=== PATIENT | male | born 1960 | race Caucasian/White ===

== ENCOUNTER 2019-03-30 07:58 | Outpatient (RCR) | payer BC, OTHER, SELFPAY ==
[2019-01-21 08:34] LABS: Prothrombin Time 22.5 Seconds (11.1-14.7)
[2019-03-30 09:26] LABS: INR 1.7; Prothrombin Time 19.2 Seconds (11.1-14.7)
== END 2019-04-21 23:59 | disposition home or self-care (01) ==
LOC: ANHLAB 07:58
PROVIDERS: PCP Nurse Practitioner Family
DX: Z51.81 Encounter for therapeutic drug level monitoring (principal); I48.0 Paroxysmal atrial fibrillation; Z79.01 Long term (current) use of anticoagulants
CPT/HCPCS: 36415; 85610

== ENCOUNTER 2019-07-15 07:02 | Outpatient (RCR) | payer BC, OTHER, SELFPAY ==
[2019-05-15 08:47] LABS: INR 3.9; Prothrombin Time 37.4 Seconds (11.1-14.7)
[2019-07-15 08:00] LABS: INR 2.4; Prothrombin Time 25.5 Seconds (11.1-14.7)
== END 2019-08-13 23:59 | disposition home or self-care (01) ==
LOC: ANHLAB 07:02
PROVIDERS: PCP Nurse Practitioner Family; Visit Provider Specialist
DX: Z51.81 Encounter for therapeutic drug level monitoring (principal); I48.20 Chronic atrial fibrillation, unspecified; Z79.01 Long term (current) use of anticoagulants
CPT/HCPCS: 36415; 85610

== ENCOUNTER 2019-10-16 07:54 | Outpatient (RCR) | payer BC, OTHER, SELFPAY ==
[2019-08-24 08:23] LABS: INR 2.6; Prothrombin Time 27.5 Seconds (11.1-14.7)
[2019-10-16 08:54] LABS: INR 2.1; Prothrombin Time 22.8 Seconds (11.1-14.7)
== END 2019-11-22 23:59 | disposition home or self-care (01) ==
LOC: ANHLAB 07:54
PROVIDERS: PCP Nurse Practitioner Family; Visit Provider Specialist
DX: Z51.81 Encounter for therapeutic drug level monitoring (principal); I48.20 Chronic atrial fibrillation, unspecified; Z79.01 Long term (current) use of anticoagulants
CPT/HCPCS: 36415; 85610

== ENCOUNTER 2020-01-16 07:54 | Outpatient (RCR) | payer BC, OTHER, SELFPAY ==
[2019-12-15 08:51] LABS: INR 2.6; Prothrombin Time 27.1 Seconds (11.1-14.7)
[2020-01-16 08:28] LABS: Partial Thromboplastin Time 38.9 SECONDS (22.3-36.8)
[2020-01-16 15:22] LABS: INR 2.9; Prothrombin Time 30.6 Seconds (11.1-14.7)
== END 2020-03-14 23:59 | disposition home or self-care (01) ==
LOC: ANHLAB 07:54
PROVIDERS: PCP Nurse Practitioner Family; Visit Provider Specialist
DX: Z51.81 Encounter for therapeutic drug level monitoring (principal); I48.20 Chronic atrial fibrillation, unspecified; Z79.01 Long term (current) use of anticoagulants
CPT/HCPCS: 36415; 85610; 85730

== ENCOUNTER 2020-05-20 07:25 | Outpatient (CLI) | payer BC, OTHER, SELFPAY ==
--- NOTE | ~2020-05-20 | XR_ITS ---
EXAMINATION: XR chest 2V DATE: 05/20/2020 07:41 INDICATION: Shortness of breath TECHNIQUE: PA and lateral views of the chest are obtained. COMPARISON: 12/26/2018 FINDINGS: The lungs are free of acute opacities. There is atelectasis of the left lung base. There is mild elevation of the left hemidiaphragm. There is no pleural effusion or pneumothorax. The cardiome diastinal silhouette is normal. There is mild thoracic spondylosis. IMPRESSION: 1. No acute cardiopulmonary abnormality. Reviewed, dictated and finalized at location A. [employer]
== END 2020-05-20 07:26 | disposition home or self-care (01) ==
PROVIDERS: PCP Nurse Practitioner Family; Visit Provider Specialist
DX: I48.20 Chronic atrial fibrillation, unspecified (principal); Z79.01 Long term (current) use of anticoagulants; I10 Essential (primary) hypertension; I50.9 Heart failure, unspecified; R06.02 Shortness of breath; I42.9 Cardiomyopathy, unspecified
CPT/HCPCS: 71046

== ENCOUNTER 2020-05-25 09:45 | Outpatient (CLI) | payer BC, OTHER, SELFPAY ==
[2020-05-25 11:20] LABS: Free T4 Free Thyroxine 1.03 ng/mL (0.78-2.19)
[2020-05-28 20:54] LABS: Triiodothyronine T3 Free 2.7 pg/mL (2.3-4.2)
== END 2020-05-25 09:46 | disposition home or self-care (01) ==
PROVIDERS: PCP Nurse Practitioner Family; Visit Provider Nurse Practitioner Family
DX: R79.89 Other specified abnormal findings of blood chemistry (principal)
CPT/HCPCS: 36415; 84439; 84481

== ENCOUNTER 2020-07-05 08:46 | Outpatient (RCR) | payer BC, OTHER, SELFPAY ==
[2020-05-14 11:11] LABS: Basophils Percent Auto 0.5 % (0.2-1.2); Eosinophils Absolute Auto 0.1 K/mm3 (0-0.3); Eosinophils Percent Auto 0.7 % (0-4.4); Hematocrit 42.8 % (42.0-52.0); Hemoglobin 14.6 g/dL (14.0-18.0); Immature Granulocyte Absolute 0.04 K/mm3 (0.00-0.031); Immature Granulocyte Percent A 0.5 % (0-0.5); Lymphocytes Absolute Auto 1.47 K/mm3 (0.9-3.2); Lymphocytes Percent Auto 16.6 % (18.3-44.2); Mean Corpuscular HGB Conc 34.1 g/dl (32-36); Mean Corpuscular Hemoglobin 35.6 pg (26-34); Mean Corpuscular Volume 104.4 fl (80-100); Mean Platelet Volume 8.8 fl (7.4-10.4); Monocytes Absolute Auto 0.6 K/mm3 (0.1-0.6); Neutrophils Absolute Auto 6.6 K/mm3 (1.3-6.7); Neutrophils Percent Auto 74.7 % (45.5-73.1); Platelet Count Result 246 k/mm3 (150-375); White Blood Count 8.9 K/mm3 (4.5-10.0)
[2020-05-14 11:24] LABS: INR 1.7
[2020-05-14 11:30] LABS: NT Pro B Type Natriuretic Pept 638 PG/ML (5-100)
[2020-06-05 08:13] LABS: Basophils Absolute Auto 0.1 K/mm3 (0.0-0.1); Basophils Percent Auto 0.6 % (0.2-1.2); Eosinophils Absolute Auto 0.1 K/mm3 (0-0.3); Eosinophils Percent Auto 0.7 % (0-4.4); Hematocrit 44.9 % (42.0-52.0); Hemoglobin 15.1 g/dL (14.0-18.0); Immature Granulocyte Absolute 0.04 K/mm3 (0.00-0.031); Immature Granulocyte Percent A 0.5 % (0-0.5); Lymphocytes Absolute Auto 1.68 K/mm3 (0.9-3.2); Lymphocytes Percent Auto 20.3 % (18.3-44.2); Mean Corpuscular HGB Conc 33.6 g/dl (32-36); Mean Corpuscular Volume 106.9 fl (80-100); Mean Platelet Volume 8.9 fl (7.4-10.4); Monocytes Absolute Auto 0.6 K/mm3 (0.1-0.6); Monocytes Percent Auto 7.7 % (2.6-8.5); Neutrophils Absolute Auto 5.8 K/mm3 (1.3-6.7); Neutrophils Percent Auto 70.2 % (45.5-73.1); Platelet Count Result 224 k/mm3 (150-375); Red Cell Distribution Width 13.9 % (11.5-14.5); White Blood Count 8.3 K/mm3 (4.5-10.0)
[2020-06-05 08:24] LABS: INR 1.6; Prothrombin Time 19.7 Seconds (11.1-14.7)
[2020-07-05 09:10] LABS: Basophils Absolute Auto 0.1 K/mm3 (0.0-0.1); Basophils Percent Auto 0.5 % (0.2-1.2); Eosinophils Absolute Auto 0.1 K/mm3 (0-0.3); Eosinophils Percent Auto 0.7 % (0-4.4); Hematocrit 45.9 % (42.0-52.0); Hemoglobin 16.1 g/dL (14.0-18.0); Immature Granulocyte Absolute 0.09 K/mm3 (0.00-0.031); Immature Granulocyte Percent A 0.9 % (0-0.5); Lymphocytes Absolute Auto 1.98 K/mm3 (0.9-3.2); Lymphocytes Percent Auto 19.1 % (18.3-44.2); Mean Corpuscular HGB Conc 35.1 g/dl (32-36); Mean Corpuscular Hemoglobin 34.8 pg (26-34); Mean Corpuscular Volume 99.4 fl (80-100); Monocytes Absolute Auto 0.8 K/mm3 (0.1-0.6); Neutrophils Absolute Auto 7.3 K/mm3 (1.3-6.7); Neutrophils Percent Auto 70.8 % (45.5-73.1); Platelet Count Result 225 k/mm3 (150-375); Red Blood Count 4.62 M/mm3 (4.6-6.20); Red Cell Distribution Width 12.9 % (11.5-14.5); White Blood Count 10.3 K/mm3 (4.5-10.0)
[2020-07-05 09:20] LABS: INR 1.9; Prothrombin Time 22.5 Seconds (11.1-14.7)
== END 2020-08-12 23:59 | disposition home or self-care (01) ==
LOC: ANHLAB 08:46
PROVIDERS: PCP Nurse Practitioner Family; Visit Provider Specialist
DX: Z51.81 Encounter for therapeutic drug level monitoring (principal); I11.0 Hypertensive heart disease with heart failure; I50.9 Heart failure, unspecified; I48.20 Chronic atrial fibrillation, unspecified; I42.9 Cardiomyopathy, unspecified; R06.02 Shortness of breath; Z79.01 Long term (current) use of anticoagulants; Z72.0 Tobacco use
CPT/HCPCS: 36415; 83880; 84443; 85025; 85610

== ENCOUNTER 2020-07-10 10:17 | Outpatient (CLI) | payer BC, OTHER, SELFPAY ==
[2020-07-10 11:22] LABS: Anion Gap 7 mmol/L (8-16); Blood Urea Nitrogen 37 mg/dL (9-20); Calcium 8.6 mg/dL (8.4-10.2); Carbon Dioxide 31 mmol/L (22-30); Chloride 96 mmol/L (98-107); Estimated Glomerular Filt Rate 38; Glucose 104 mg/dL (75-110); Magnesium 1.9 mg/dL (1.6-2.3); Potassium 4.2 mmol/L (3.4-5.0); Sodium 134 mmol/L (137-145)
== END 2020-07-10 10:18 | disposition home or self-care (01) ==
PROVIDERS: PCP Nurse Practitioner Family
DX: I48.20 Chronic atrial fibrillation, unspecified (principal)
CPT/HCPCS: 36415; 80048; 83735

== ENCOUNTER 2020-08-05 07:47 | Outpatient (CLI) | payer BC, OTHER, SELFPAY ==
[2020-08-05 08:15] LABS: Anion Gap 3 mmol/L (8-16); Blood Urea Nitrogen 20 mg/dL (9-20); Calcium 8.6 mg/dL (8.4-10.2); Carbon Dioxide 32 mmol/L (22-30); Chloride 99 mmol/L (98-107); Estimated Glomerular Filt Rate 44; Glucose 119 mg/dL (75-110); Sodium 134 mmol/L (137-145)
== END 2020-08-05 07:48 | disposition home or self-care (01) ==
PROVIDERS: PCP Nurse Practitioner Family
DX: R79.89 Other specified abnormal findings of blood chemistry (principal); I10 Essential (primary) hypertension
CPT/HCPCS: 36415; 80048

== ENCOUNTER 2020-10-15 07:26 | Outpatient (RCR) | payer BC, OTHER, SELFPAY ==
[2020-10-15 08:14] LABS: Prothrombin Time 22.2 Seconds (11.1-14.7)
== END 2021-01-13 23:59 | disposition home or self-care (01) ==
LOC: ANHLAB 07:26
PROVIDERS: PCP Nurse Practitioner Family
DX: I49.3 Ventricular premature depolarization (principal)
CPT/HCPCS: 36415; 85610